=== PATIENT | female | born 2000 ===

== ENCOUNTER 2024-08-15 20:30 | Outpatient (REF) | payer SELFPAY ==
--- NOTE | 2024-08-15 14:40 | PAPFT_PTH ---
PATIENT: Alberto Roper LOC: [facility] U#:[id number] AGE/SX: 24/F ROOM: RE08/15/[address]: Cristy Garza : 2000 BED: DIS: 08/15/2024 SPEC #: [id number] RECD: 08/18/24 13:10 STATUS: TYLER LEAVITT #: [id number] EVELINA: 08/15/24 14:[address]: Cristy Garza DEPT: [facility] Cytology RECD BY: Serenity Stover Tissues: 1 - CX/ENDOCX FOR PAP SMEARS Procedures: PAP THIN PREP/[facility] Screening HPV DNA PROBE Comments: [id number] (HPV 16 & 18/45)
== END 2024-08-15 20:31 | disposition home or self-care (01) ==
LOC: NCHCN 20:30
PROVIDERS: PCP Internal Medicine; Visit Provider Internal Medicine
DX: Z11.51 Encounter for screening for human papillomavirus (HPV) (principal); Z01.419 Encounter for gynecological examination (general) (routine) without abnormal findings
CPT/HCPCS: 88142; 87624